=== PATIENT | female | born 1995 | race Caucasian/White ===

== ENCOUNTER 2018-01-02 23:14 | Emergency (ER) | payer BC ==
[2018-01-03 00:13] LABS: #Lymphocytes 1.3 thou/uL (1.20-3.40); #Monocytes 0.4 thou/uL (0.11-0.59); #Neutrophils 7.5 thou/uL (1.40-6.50); %Basophils 0.3 % (0.0-1.0); %Eosinophils 0.4 % (0.0-10.0); %Lymphocytes 13.6 % (28.0-48.0); %Monocytes 4.3 % (0.0-4.0); %Neutrophils 81.4 % (31.0-61.0); Hemoglobin 11.8 g/dL (12.0-16.0); Mean Corpuscular HGB CONC 31.7 g/dL (32.0-36.0); Mean Corpuscular Hemoglobin 24.1 pg (25.0-35.0); Mean Platelet Volume 8.6 fL (7.4-10.4); Platelet Count 271 thou/uL (130-400); RBC Distribution Width 15.3 % (11.5-14.5); Red Blood Cell (RBC) Count 4.88 mill/uL (4.00-5.20); White Blood Cell (WBC) Count 9.2 thou/uL (4.8-10.8)
--- NOTE | 2018-01-03 00:28 | ULT ---
PELVIC ULTRASOUND WITH BINGHAM-SCALE AND DOPPLER COLOR-FLOW IMAGING: HISTORY: Pelvic pain, right sided. TECHNIQUE: Transvaginal and transabdominal pelvic ultrasound. FINDINGS: The uterus is appropriate in volume for the patient's age. Endometrial stripe is 7-8 mm, within norm al limits for a patient of this age. Doppler evaluation with spectral analysis was performed, which revealed vascularity, including elicit ed waveforms of each ovary. Complex appearing cysts of the right ovary, which include increased echo genicity, as well as internal linear increased echogenicity that could relate to septations or oppose d storm of adjacent complex cysts present, with a diameter measuring up to approximately 3.6 cm. No significant internal flow, which favors complex/hemorrhagic cysts, rather than ovarian mass. Small f ollicles are seen at the left ovary. There is free pelvic fluid. IMPRESSION: 1. Findings favoring complex, hemorrhagic cysts of the right ovary, measuring between 3 and 4 cm. A six week follow-up pelvic ultrasound is recommended to confirm appropriate resolution. In addition, recommend correlation with beta hCG values to exclude the possibility of an ectopic . 2. Free pelvic fluid. CODE T
[2018-01-03 00:35] LABS: ALT (SGPT) 10 U/L (8-55); AST (SGOT) 17 U/L (5-34); Albumin 4.4 g/dL (3.5-5.0); Alkaline Phosphatase 55 U/L (40-150); Anion Gap 13 mmol/L (10-20); BUN (Urea Nitrogen) 7 mg/dL (7.0-18.7); Bilirubin, Total 0.3 mg/dL (0.2-1.2); Calc. Creatinine Clearance 0 mL/min (70-130); Calcium 9.7 mg/dL (7.8-10.44); Carbon Dioxide 23 mmol/L (22-29); Chloride 108 mmol/L (98-107); Estimated GFR-MDRD Greater than 90; Globulin 3.1 g/dL (2.4-3.5); Glucose 140 mg/dL (70-105); Potassium 3.8 mmol/L (3.5-5.1); Protein, Total 7.5 g/dL (6.0-8.3); Sodium 140 mmol/L (136-145)
== END 2018-01-03 02:00 | disposition home or self-care (01) ==
LOC: ERS 23:14
DX: N83.201 Unspecified ovarian cyst, right side (principal)
CPT/HCPCS: 36415; 76856; 80053; 85025; 99284